=== PATIENT | male | born 1950 | race Caucasian/White ===

== ENCOUNTER 2019-08-14 07:31 | Day surgery (SDC) | payer OTHER ==
[~2019-08-14] VITALS: Ht 188 cm; Wt 104.5 kg
[~2019-08-14 07:31] MED LIST: DOXA2 PO; HYDMOR4 PO; LISI20 PO; LORA2 PO; NAPR500 PO; PAIN MED; TAMS.4ER; TAMS.4ER PO
--- NOTE | 2019-08-14 09:20 | NUR ---
08/14/19 0920 Socorro Finney 10ML ELEVIEW TO RAISE HEPATIC FLEXURE POLYP 3ML SPOT MARKER USED TO TATTOO HEPATIC FLEXURE POLYP
--- NOTE | 2019-08-14 10:14 | NUR ---
08/14/19 1014 Socorro Finney LATE ENTRY PATIENT REFUSED MULTIPLE OFFERS OF PO FLUIDS
== END 2019-08-14 10:06 | disposition home or self-care (01) ==
LOC: ORSCSDS 07:31
PROVIDERS: Internal Medicine Gastroenterology
PROC: 0DBL8ZX Excision of Transverse Colon, Via Natural or Artificial Opening Endoscopic, Diagnostic (ICD-10-PCS; principal; 2019-08-14 08:45)
DX: Z12.11 Encounter for screening for malignant neoplasm of colon (principal); D12.3 Benign neoplasm of transverse colon; K57.30 Diverticulosis of large intestine without perforation or abscess without bleeding; K64.8 Other hemorrhoids; Z86.010 Personal history of colon polyps
CPT/HCPCS: 88305; J2405; J2704; J7120

== ENCOUNTER 2020-03-27 08:50 | Day surgery (SDC) | payer OTHER, SELFPAY ==
[~2020-03-27] VITALS: Ht 188 cm; Wt 102.0 kg
[~2020-03-27 08:50] MED LIST changes: +ZESTRIL40 M1 PO
== END 2020-03-27 11:03 | disposition home or self-care (01) ==
LOC: ORSCSDS 08:50
PROVIDERS: Internal Medicine Gastroenterology
PROC: 0DBH8ZX Excision of Cecum, Via Natural or Artificial Opening Endoscopic, Diagnostic (ICD-10-PCS; principal; 2020-03-27 10:00)
PROC: 0DBL8ZX Excision of Transverse Colon, Via Natural or Artificial Opening Endoscopic, Diagnostic (ICD-10-PCS; principal; 2020-03-27 10:00)
DX: Z86.010 Personal history of colon polyps (principal); D12.0 Benign neoplasm of cecum; D12.3 Benign neoplasm of transverse colon; K57.30 Diverticulosis of large intestine without perforation or abscess without bleeding; K64.8 Other hemorrhoids; I10 Essential (primary) hypertension; E78.5 Hyperlipidemia, unspecified; Z79.899 Other long term (current) drug therapy
CPT/HCPCS: 88305; J2704; J7120

== ENCOUNTER → 2023-06-07 | Outpatient (CLI) | payer OTHER | END | disposition home or self-care (01) | LOC: LAB SHORT 14:35 → LAB 14:35 | DX: B07.8 Other viral warts (principal) | CPT/HCPCS: 88305 ==

== ENCOUNTER 2024-01-19 09:54 | Day surgery (SDC) | payer OTHER ==
[~2024-01-19] VITALS: Ht 188 cm; Wt 97.8 kg
[~2024-01-19 09:54] MED LIST changes: +Lactated Ringer's 1,000 ML IV ONE; +propofoL 50 ML IV ONE
[2024-01-19] MEDS ORDERED: Lactated Ringer's 1,000 ML IV ONE (10:36)
[2024-01-19 11:50] VITALS: BP 132/73
== END 2024-01-19 11:52 | disposition home or self-care (01) ==
LOC: ORSCSDS 09:54
PROVIDERS: Internal Medicine Gastroenterology
PROC: 0DBL8ZX Excision of Transverse Colon, Via Natural or Artificial Opening Endoscopic, Diagnostic (ICD-10-PCS; principal; 2024-01-19 11:15)
PROC: 0DBK8ZX Excision of Ascending Colon, Via Natural or Artificial Opening Endoscopic, Diagnostic (ICD-10-PCS; principal; 2024-01-19 11:15)
PROC: 0DBM8ZX Excision of Descending Colon, Via Natural or Artificial Opening Endoscopic, Diagnostic (ICD-10-PCS; principal; 2024-01-19 11:15)
DX: Z12.11 Encounter for screening for malignant neoplasm of colon (principal); D12.2 Benign neoplasm of ascending colon; D12.3 Benign neoplasm of transverse colon; D12.4 Benign neoplasm of descending colon; K57.30 Diverticulosis of large intestine without perforation or abscess without bleeding; Z86.010 Personal history of colon polyps; I10 Essential (primary) hypertension; E78.5 Hyperlipidemia, unspecified; N40.0 Benign prostatic hyperplasia without lower urinary tract symptoms; F41.0 Panic disorder [episodic paroxysmal anxiety]; Z79.899 Other long term (current) drug therapy
CPT/HCPCS: 88305; J2704; J7120